=== PATIENT | male | born 1990 | race Caucasian/White ===

== ENCOUNTER 2016-07-30 18:57 | Emergency (ER) | payer SELFPAY ==
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
[2016-07-31 01:18] VITALS: BP 135/82
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
== END 2016-07-30 21:16 | disposition home or self-care (01) ==
LOC: MW.ED 18:57
DX: S92.422A Displaced fracture of distal phalanx of left great toe, initial encounter for closed fracture (principal); S90.112A Contusion of left great toe without damage to nail, initial encounter; Z88.1 Allergy status to other antibiotic agents; Z88.2 Allergy status to sulfonamides; V29.88XA Motorcycle rider (driver) (passenger) injured in other specified transport accidents, initial encounter; Y92.410 Unspecified street and highway as the place of occurrence of the external cause
CPT/HCPCS: 11740; 73630-26-LT; 73630-LT; 99283